=== PATIENT | female | born 1985 | race Caucasian/White ===

== ENCOUNTER 2020-11-29 16:45 | Emergency (ER) | payer OTHER ==
[~2020-11-29] VITALS: Ht 167.6 cm; Wt 78.0 kg
--- NOTE | 2020-11-29 16:59 | NUR ---
TO ER BED 4, C/O R ELBOW PAIN S/P FALLING OFF HER SKATEBOARD 2 HOURS AGO, AWAITING MD [place]
[2020-11-29] MEDS ORDERED: KETOROLAC TROMETHAMINE INJ 30 MG/ML VIAL ONE (17:20)
[2020-11-29] MEDS ORDERED: HYDROCODONE/APAP 5/325MG TABLET ONE (17:20)
--- NOTE | 2020-11-29 17:26 | NUR ---
XRAY AT BEDSIDE
[2020-11-29] MEDS ORDERED: KETOROLAC TROMETHAMINE INJ 30 MG/ML VIAL IM ONE (17:30)
[2020-11-29] MEDS ORDERED: HYDROCODONE/APAP 5/325MG TABLET PO ONE (17:30)
[2020-11-29] MEDS ORDERED: NAPR-1009 PO (19:00)
[2020-11-29] MEDS ORDERED: OXYC-473 PO (19:00)
[2020-11-29 19:09] VITALS: BP 118/90
== END 2020-11-29 19:11 | disposition home or self-care (01) ==
LOC: ER 16:45
DX: S52.121A Displaced fracture of head of right radius, initial encounter for closed fracture (principal); S53.194A Other dislocation of right ulnohumeral joint, initial encounter; V00.131A Fall from skateboard, initial encounter; Y93.51 Activity, roller skating (inline) and skateboarding; Y92.331 Roller skating rink as the place of occurrence of the external cause; Y99.8 Other external cause status
CPT/HCPCS: 29105; 73080; 96372; 99283; J1885